=== PATIENT | male | born 1955 | race Caucasian/White ===

== ENCOUNTER → 2016-10-26 | Outpatient (CLI) | payer BC ==
[~2016-10-26] MED LIST: LISINOPRIL20 MG PO; METOPROLOL SUCC25 MG PO; METOPROLOL TART25 MG PO; OXYCODONE HCL5 MG PO; PRAVASTATIN SOD40 MG PO; TYLENOL REGULA325 MG PO
== END | disposition home or self-care (01) ==
LOC: CDC 14:53
DX: I45.10 Unspecified right bundle-branch block (principal)
CPT/HCPCS: 93000

== ENCOUNTER 2017-01-15 11:57 | Emergency (ER) | payer BC ==
[~2017-01-15] VITALS: Ht 180.3 cm; Wt 95.4 kg
[2017-01-15 13:18] LABS: CHLORIDE 101 mEq/L (99-109); SODIUM 139 mEq/L (136-147)
[2017-01-15 13:20] LABS: GLUCOSE 101 mg/dL (70-99)
[2017-01-15 13:22] LABS: ANION GAP 12 MEQ/L (2-14)
[2017-01-15 13:24] LABS: GFR ESTIMATE (CALCULATED) > 59 mL/min/
[2017-01-15 13:25] LABS: UREA NITROGEN (BUN) 24 mg/dL (9-23)
[2017-01-15 14:30] VITALS: BP 125/75
[2017-01-15 14:55] LABS: HEMATOCRIT 40.5 % (38.0-50.0); MCH 32.8 PG (29.0-34.0); MCHC 34.8 G/DL (30.0-36.0); MCV 94.2 FL (86-99); PLATELET COUNT 182 K/uL (156-360); RBC DIS.WIDTH-CV 12.2 % (11.8-14.6); RBC DIS.WIDTH-SD 42.4 % (39-53); WHITE BLOOD COUNT 8.1 K/uL (4.1-10.2)
[2017-01-15] MEDS ORDERED: ANTIVERT25 MG PO (15:15)
== END 2017-01-15 15:30 | disposition home or self-care (01) ==
LOC: EME 11:57
PROVIDERS: Emergency Medicine
DX: R42 Dizziness and giddiness (principal); R51 Headache; R11.2 Nausea with vomiting, unspecified; I10 Essential (primary) hypertension; E78.5 Hyperlipidemia, unspecified
CPT/HCPCS: 70450; 80048; 85027; 93005; 99281; 99285; J2405; J7030